=== PATIENT | female | born 1965 | race Caucasian/White ===

== ENCOUNTER 2021-01-29 15:50 | Inpatient (IN) | payer BC ==
[~2021-01-29] VITALS: Ht 167.6 cm; Wt 96.7 kg
[2021-01-29] MEDS ORDERED: NITROGLYCERIN 0.4 MG/TAB BOTTLE SL ONE ×2 (16:15→16:26)
[2021-01-29] MEDS ORDERED: FUROSEMIDE 40 MG/4 ML VIAL IV ONE (16:30)
[2021-01-29] MEDS ORDERED: FUROSEMIDE 20 MG/2 ML VIAL ONE (16:43)
[2021-01-29] MEDS ORDERED: FUROSEMIDE 40 MG/4 ML VIAL ONE (16:44)
[2021-01-29] MEDS ORDERED: PARO20TA7 PO (17:40)
[2021-01-29] MEDS ORDERED: ESZO3TAB27 PO (17:40)
[2021-01-29] MEDS ORDERED: AMIO200T5 PO (17:40)
[2021-01-29] MEDS ORDERED: OXYC-121 PO (17:40)
[2021-01-29] MEDS ORDERED: ENOX40DI SQ (17:40)
[2021-01-29] MEDS ORDERED: SUMA50TA PO (17:40)
[2021-01-29] MEDS ORDERED: METO25TA6 PO (17:40)
[2021-01-29] MEDS ORDERED: ZINC50TA69 PO (17:40)
[2021-01-29] MEDS ORDERED: VALS320T2 PO (17:40)
[2021-01-29] MEDS ORDERED: VALS160T2 PO (17:40)
[2021-01-29] MEDS ORDERED: ALPR0.5T8 PO (17:40)
[2021-01-29] MEDS ORDERED: TAPE100T9 PO (17:40)
[2021-01-29] MEDS ORDERED: MELO-107 PO (17:40)
[2021-01-29] MEDS ORDERED: CYCL5TAB PO (17:40)
[2021-01-29] MEDS ORDERED: MUPI22OI2 TP (17:40)
[2021-01-29] MEDS ORDERED: ESTR1CAP PO (17:40)
[2021-01-29] MEDS ORDERED: CLON0.1T PO (17:40)
[2021-01-29] MEDS ORDERED: ALBU18HF2 INH (17:40)
[2021-01-29] MEDS ORDERED: APIX5TAB4 PO (17:40)
[2021-01-29] MEDS ORDERED: OXYC10TA59 PO (17:40)
[2021-01-29] MEDS ORDERED: NITROGLYCERIN OINT 1 GM PACKET TP ONE ×2 (17:45→18:02)
--- NOTE | 2021-01-29 18:28 | NUR ---
Waiting to redo EKG, holding for U/S to finish.
--- NOTE | 2021-01-29 19:25 | NUR ---
Assumed care of patient at this time. Patient to be admitted to CCU for respiratory failure/pedal edema. Admitting MD is Dr. Samson.
[2021-01-29 20:10] LABS: BASOPHILS % (AUTO) 0.4 % (0.0-2.0); EOSINOPHILS % (AUTO) 0.4 % (0.0-7.0); HEMATOCRIT 35.7 % (31.2-41.9); HEMOGLOBIN 11.7 g/dL (10.9-14.3); LYMPHOCYTES # (AUTO) 1.4 K/uL (20.0-40.0); LYMPHOCYTES % (AUTO) 17.5 % (20.5-51.5); MEAN CORPUSCULAR HEMOGLOBIN 29.8 uug (24.7-32.8); MEAN CORPUSCULAR HGB CONC 33 g/dL (32.3-35.6); MEAN CORPUSCULAR VOLUME 90.8 fL (75.5-95.3); MONOCYTES # (AUTO) 0.3 K/uL (2.0-10.0); MONOCYTES % (AUTO) 4.2 % (0.0-11.0); NEUTROPHILS # (AUTO) 6.2 K/uL (1.8-8.9); NEUTROPHILS % (AUTO) 77.5 % (38.5-71.5); PLATELET COUNT (AUTO) 218 K/uL (179-408); RED BLOOD CELL COUNT(AUTO) 3.93 MIL/uL (3.63-4.92)
[2021-01-29 20:15] LABS: CREATININE 0.8 mg/dL (0.6-1.3); POTASSIUM 3.7 mmol/L (3.5-5.1)
[2021-01-29] MEDS ORDERED: CYCLOBENZAPRINE HCL 10 MG TABLET PO PRN (20:30)
[2021-01-29] MEDS ORDERED: Medication Not On Formulary EA (Oxycodone Hcl (Oxycontin) 10 MG) PO SCH (20:30)
[2021-01-29] MEDS ORDERED: SUMATRIPTAN SUCCINATE 50 MG TABLET PO PRN (20:30)
[2021-01-29 20:31] LABS: BILIRUBIN,DIRECT 0.1 mg/dL (0.0-0.2); BILIRUBIN,TOTAL 0.3 mg/dL (0.2-1.0); TOTAL PROTEIN, SERUM 7.7 g/dL (6.4-8.2)
[2021-01-29 20:35] LABS: MAGNESIUM 2.1 mg/dL (1.8-2.4); THYROID STIMULATING HORMONE 2.335 mIU/mL (0.358-3.740)
[2021-01-29 20:40] VITALS: BP 186/87
--- NOTE | 2021-01-29 20:40 | NUR ---
Admitted a 55 y.o female patient from ER via gurney DX: Accelerated HTN and Afib. To CCU4. Patient AAO, NAD noted. Assessment done. property assessment monitor: SB rate low 50's. BP 180 systole. Patient c/o headache. Patient's Alexander is with patient upon admission. Dr. Samson notified of patient's condition. Both patient and patient's informed of routine CCU care. Up to the BS with assist; voided clear yellow urine. Patient denies dizziness during ambulation but claims she has problem with balance. Safety and fall precautions enforced. Call light within reach, bed alarm on. Addendum: 01/29/21 at 4657 by YULISSA BARNES RN Amended: Links added.
[2021-01-29 20:45] VITALS: BP 178/80
[2021-01-29] MEDS ORDERED: ALBUTEROL SULFATE 1.25 MG/3 ML NEBU NEB PRN (20:45)
[2021-01-29] MEDS ORDERED: MAGNESIUM HYDROXIDE 30 ML LIQUID UDC PO PRN (20:45)
[2021-01-29] MEDS ORDERED: hydrALAZINE HCL 25 MG TABLET PO PRN (20:45)
[2021-01-29] MEDS ORDERED: ACETAMINOPHEN 325 MG TABLET PO PRN (20:45)
[2021-01-29] MEDS ORDERED: ONDANSETRON 4 MG/2 ML VIAL IV PRN (20:45)
[2021-01-29] MEDS ORDERED: ALPRAZOLAM 0.5 MG TABLET PO PRN (20:45)
[2021-01-29] MEDS ORDERED: VALSARTAN 160 MG TABLET PO SCH (21:00)
[2021-01-29] MEDS: DOCUSATE SODIUM 100 MG CAPSULE PO SCH (21:00)
[2021-01-29] MEDS ORDERED: METOPROLOL TARTRATE 50 MG TABLET PO SCH (21:00)
[2021-01-29] MEDS: HYDROCODONE/APAP 10-325 MG TABLET PO PRN (21:10)
--- NOTE | 2021-01-29 21:10 | NUR ---
Medicated with [place] for headache. Took meds without problems. All belongings sent home with Alexander patient's except cell phone, roll edge stitcher hand both at bedside and 3 necklaces, a wedding band which are worn by patient.
[2021-01-29] MEDS: APIXABAN 5 MG TABLET PO SCH (21:29)
[2021-01-29 21:30] VITALS: BP 155/91
--- NOTE | 2021-01-29 21:50 | NUR ---
O2 changed from 100% nonrebreather to 4LNC; saturations maintaining above 94%. Patient denies SOB.
[2021-01-29 22:00] VITALS: BP 143/71
--- NOTE | 2021-01-29 22:00 | NUR ---
Admission data completed. [place] effective as per patient; headache 12/16.
[2021-01-29 23:00] VITALS: BP 137/82
[2021-01-29] MEDS: TEMAZEPAM 15 MG CAPSULE PO PRN (23:01)
--- NOTE | 2021-01-29 23:50 | NUR ---
Awake, up to the BSC with assist; voided without problems. Mildly anxious. "I am not really sleeping after the sleeping pill, been awake every 10 minutes. Do you think they will let me go home tomorrow?" patient states. Also stated that she takes Candia at home every 3-4 hours for severe back pain due to herniated discs. Patient informed of plan of care including cardiology consult and Candia Q6H as ordered by Dr. Samson. Medicated with Xanax.
[2021-01-30] VITALS (16 sets, daily range): BP systolic 121–165; BP diastolic 53–118
[2021-01-30] MEDS ORDERED: HYDROCODONE/APAP 10-325 MG TABLET PO ONE (01:45)
--- NOTE | 2021-01-30 01:45 | NUR ---
Patient called c/o back pains 04/17. Next dose of [place] is at 0300. Call placed to [facility]. Spoke to Aishwarya Holden NP; order received.
--- NOTE | 2021-01-30 01:51 | NUR ---
Medicated with [place] for back pains. Up to [facility] with assist; voided. Back to bed without problems.
[2021-01-30 05:06] LABS: BASOPHILS % (AUTO) 0.3 % (0.0-2.0); EOSINOPHILS % (AUTO) 0.7 % (0.0-7.0); HEMATOCRIT 32.7 % (31.2-41.9); HEMOGLOBIN 10.8 g/dL (10.9-14.3); LYMPHOCYTES # (AUTO) 1.5 K/uL (20.0-40.0); LYMPHOCYTES % (AUTO) 25.2 % (20.5-51.5); MEAN CORPUSCULAR HEMOGLOBIN 29.7 uug (24.7-32.8); MEAN CORPUSCULAR HGB CONC 33 g/dL (32.3-35.6); MEAN CORPUSCULAR VOLUME 90.4 fL (75.5-95.3); MONOCYTES # (AUTO) 0.3 K/uL (2.0-10.0); MONOCYTES % (AUTO) 5.2 % (0.0-11.0); NEUTROPHILS # (AUTO) 4.1 K/uL (1.8-8.9); NEUTROPHILS % (AUTO) 68.6 % (38.5-71.5); PLATELET COUNT (AUTO) 187 K/uL (179-408); RED BLOOD CELL COUNT(AUTO) 3.62 MIL/uL (3.63-4.92)
[2021-01-30 05:21] LABS: BILIRUBIN,TOTAL 0.4 mg/dL (0.2-1.0); CREATININE 0.7 mg/dL (0.6-1.3); PHOSPHOROUS 3.4 mg/dL (2.5-4.9); POTASSIUM 3.6 mmol/L (3.5-5.1); TOTAL PROTEIN, SERUM 6.4 g/dL (6.4-8.2)
[2021-01-30] MEDS: HYDROCODONE/APAP 10-325 MG TABLET PO PRN ×3 (05:48→20:14)
--- NOTE | 2021-01-30 05:48 | NUR ---
Awake, sitting up in bed c/o severe back pains. Medicated with [place]. Up to BSC with assist. Patient was guarding and slow to move back to bed due to back pains. Advised appropriately; informed that will endorse to am shift the need to increase pain medication frequency. "I take Oxycontin and I'm under a pain management MD." patient states, but can't remember MD's name at this time. BP 145/118. Will recheck.
--- NOTE | 2021-01-30 06:10 | NUR ---
Am care rendered per patient's request. Able to brush teeth. Partial linen change done.
--- NOTE | 2021-01-30 06:30 | NUR ---
BP 158/94. [place] effective; pain 6/10 as per patient and only when she moves.
--- NOTE | 2021-01-30 07:00 | NUR ---
Up to BSC again; voided. BP 145/75. Plan of care discussed. Verbalized understanding.
[2021-01-30] MEDS ORDERED: IV NORMAL SALINE 250 ML IV ONE (07:53)
[2021-01-30] MEDS ORDERED: SWABABLE VALVE TRANSFER SET EA MC ONE (07:53)
[2021-01-30] MEDS ORDERED: IOHEXOL 350 100 ML INFUS..BTL ONE (07:53)
[2021-01-30] MEDS ORDERED: FUROSEMIDE 20 MG/2 ML VIAL IV ONE (08:30)
[2021-01-30] MEDS ORDERED: FUROSEMIDE 20 MG/2 ML VIAL IV SCH (09:00)
[2021-01-30] MEDS: PAROXETINE HCL 20 MG TABLET PO SCH (09:20)
[2021-01-30] MEDS: CYCLOBENZAPRINE HCL 10 MG TABLET PO PRN (09:22)
[2021-01-30] MEDS: APIXABAN 5 MG TABLET PO SCH ×2 (09:23→20:18)
[2021-01-30] MEDS: VALSARTAN 160 MG TABLET PO SCH (09:24)
[2021-01-30] MEDS: AMIODARONE HCL 200 MG TABLET PO SCH (09:25)
--- NOTE | 2021-01-30 10:30 | NUR ---
Patient seen by Monty Elias, downgraded patient to telemetry and awaiting echocardiogram to report to Dr. Anand for Discharge clearance.
[2021-01-30] MEDS: MORPHINE SULFATE 4 MG/1 ML DISP.SYRIN IV PRN ×3 (10:58→17:34)
--- NOTE | 2021-01-30 13:11 | NUR ---
Notified Dr. Anand of results of preliminary Echocardiogram and CT scan. No new orders at this time.
--- NOTE | 2021-01-30 14:36 | NUR ---
Gave report to Martir. Patient continues to be on room air, no distress noted at this time. Sinus bradycardia on the monitor. Patient to be transferred to room 309 via wheelchair.
--- NOTE | 2021-01-30 15:03 | NUR ---
patient is alert, oriented x4, no sob,resp even nonlabored skin warm and dry to touch, patient transferred to telemetry floor via wheelchair, stable condition, oriented to unit.
--- NOTE | 2021-01-30 19:30 | NUR ---
Received patient lying in bed. AAOx4. In no acute distress. Denies any pain or SOB at this time. Sinus karen on tele at 54/min. IV site on left hand intact and patent. Needs assessed and attended to. Safety measure initiated and call juan within reached. Addendum: 01/30/21 at 2208 by CED DESIR RN No IV site on left hand. Has PICC line on right upper arm, intact and patent.
[2021-01-30] MEDS: DOCUSATE SODIUM 100 MG CAPSULE PO SCH (20:18)
[2021-01-30] MEDS: TEMAZEPAM 15 MG CAPSULE PO PRN (21:28)
[2021-01-31] VITALS: BP 139/71
[2021-01-31] MEDS: MORPHINE SULFATE 4 MG/1 ML DISP.SYRIN IV PRN ×2 (02:15→08:23)
[2021-01-31 05:27] VITALS: BP 108/45
--- NOTE | 2021-01-31 05:55 | NUR ---
Dr. Anand into visit with no new order given. Stated pt for poss. discharge today.
--- NOTE | 2021-01-31 06:21 | NUR ---
AAOx4. In no acute distress. Denies any SOB. [place] 10/325mg PRN per order given for complain of back pain and effective. Sinus karen on tele at 53/min. PICC line on right upper arm intact and patent. Needs attended to and met. Safety measure maintained and call juan within reached.
--- NOTE | 2021-01-31 07:42 | NUR ---
shift report received. patient awake and alert in bed, no complains of any pain or discomfort noted at this time. call light within reach. will continue to monitor.
[2021-01-31 08:07] VITALS: BP 128/64
[2021-01-31] MEDS: APIXABAN 5 MG TABLET PO SCH (08:24)
[2021-01-31] MEDS: VALSARTAN 160 MG TABLET PO SCH (08:25)
[2021-01-31] MEDS: PAROXETINE HCL 20 MG TABLET PO SCH (08:25)
[2021-01-31] MEDS: AMIODARONE HCL 200 MG TABLET PO SCH (08:26)
[2021-01-31] MEDS: HYDROCODONE/APAP 10-325 MG TABLET PO PRN (11:01)
[2021-01-31 11:16] VITALS: BP 152/75
[2021-01-31] MEDS: CYCLOBENZAPRINE HCL 10 MG TABLET PO PRN (13:06)
[2021-01-31] MEDS ORDERED: CHLO25TA2 PO (14:36)
[2021-01-31 14:44] VITALS: BP 136/69
--- NOTE | 2021-01-31 16:55 | NUR ---
pt discharged home, left with all belongings and paperwork in hand. All medications given as ordered, IV band, IV access and tele monitor all removed prior to discharge. Pt left via private car with and son, pt escorted downstairs via wheelchair. pt ambulatory, a/ox4 pt had scratch on chin, photos in chart. pt given education material and instructions to follow up with PCP and pt handed medication prescription.
== END 2021-01-31 16:55 | disposition home or self-care (01) | DRG 291 ==
LOC: ER 15:50 → CCU 20:12 → TELE3 01-30 15:12
PROVIDERS: ADMIT Internal Medicine; ATTEND Hospitalist
PROC: 02HV33Z Insertion of Infusion Device into Superior Vena Cava, Percutaneous Approach (ICD-10-PCS; principal; 2021-01-29)
PROC: B548ZZA Ultrasonography of Superior Vena Cava, Guidance (ICD-10-PCS; 2021-01-29)
DX: I11.0 Hypertensive heart disease with heart failure (principal); I50.31 Acute diastolic (congestive) heart failure; J96.00 Acute respiratory failure, unspecified whether with hypoxia or hypercapnia; J98.11 Atelectasis; I48.0 Paroxysmal atrial fibrillation; R00.1 Bradycardia, unspecified; Z79.01 Long term (current) use of anticoagulants; Z20.822 Contact with and (suspected) exposure to COVID-19; E66.9 Obesity, unspecified; E78.5 Hyperlipidemia, unspecified; F41.9 Anxiety disorder, unspecified; G89.29 Other chronic pain; Z68.34 Body mass index [BMI] 34.0-34.9, adult; M19.90 Unspecified osteoarthritis, unspecified site; R91.1 Solitary pulmonary nodule; Z98.84 Bariatric surgery status; Z96.653 Presence of artificial knee joint, bilateral
CPT/HCPCS: 36415; 70030-TC; 71045; 71275; 72100; 83735; 84100; 84443; 85025; 85730; 93005; 93307; A4663; G0378; J1940; J2270; J7050; Q9967